=== PATIENT | female | born 1995 | race Caucasian/White ===

== ENCOUNTER → 2017-12-11 10:17 | Outpatient (CLI) | payer OTHER, SELFPAY ==
--- NOTE | 2017-12-11 10:17 | DT_ITS ---
This patient was seen during an EMR downtime December 07, 2017 - December 14, 2017. This patient may have a combination of paper and electronic documentation or all paper documentation. All documentation is viewable within the e-chart portion of [facility] for each patient visit.
[2017-12-11 12:16] LABS: Internal QC Validated? YES +Cl - CLEAR BKGD; Pregnancy, Urine Negative Negative
== END ==
PROVIDERS: Family Provider Family Medicine; PCP Family Medicine
DX: L70.0 Acne vulgaris (principal)
CPT/HCPCS: 81025